=== PATIENT | female | born 1965 | race Caucasian/White ===

== ENCOUNTER → 2016-09-12 | Outpatient (CLI) | payer OTHER ==
[~2016-09-12] MED LIST: CONTRAVE1 TER PO; CYMBALTA30 MG PO; ESTRACE 2MG. TAB2 MG PO; LEVAQUIN500 MG PO; LEVOCETIRIZINE D5 MG PO; PYRIDIUM 200MG200 MG PO; SUMATRIPTAN SU100 M1 PO
[2016-09-16 19:46] LABS: VARICELLA-ZOSTER IGG AB 2.73 (<= 0.90); VARICELLA-ZOSTER IGM AB <=0.90 (<= 0.90)
[2016-09-26 09:56] LABS: MUMPS ANTIBODY IGG >5.00 index (())
== END ==
LOC: LAB 15:03
PROVIDERS: Family Medicine
DX: R76.0 Raised antibody titer (principal)

== ENCOUNTER → 2016-11-22 | Outpatient (CLI) | payer OTHER ==
--- NOTE | 2016-11-24 09:20 | RADIOLOGY REPORT PS360 ---
DIG MAMM-SCREEN [facility] W/CAD CAD Screening ORDERING PHYSICIAN : Dimitri Yee MD PATIENT AGE: 51 years GENDER: Female COMPARISON: Previous mammograms: June 2014 study from this facility Outside mammograms [facility] from January 2011 and April 2008 INDICATION: Patient taking estrogen. Previous benign excisional biopsy left breast. Mother with breast cancer age 54 TECHNIQUE: Standard CC and MLO images were obtained. R2 CAD reviewed. FINDINGS: Moderately dense breast bilaterally but with no dominant mass nor suspicious calcifications. RIGHT BREAST: Stable. No new findings. LEFT BREAST: There is additional density suggested at the deep lateral left breast towards upper outer quadrant. This could may be summation shadow since it partially dissipates on the x-ray cc view but it does appear to reflect a subtle change on standard MLO and cc view. Thus would recommend patient return for spot view in this area. These should include spot CC, spot MLO and 90 degrees spot views. Also ultrasound appropriate up to survey this area. I see the patient has had a biopsy at the superior breast which could conceivably contribute to of the slight asymmetry here. IMPRESSION: LEFT BREAST: Area of slight additional density at the left breast towards upper-outer quadrant Recommend spot views and ultrasound to further evaluate left breast . Right Breast stable. Follow-up in one year on right BI-RADS CATEGORY: 0_Incomplete: Need additional imaging. RECOMMENDED FOLLOWUP: ADD ADDITIONAL IMAGING Left breast spot views and ultrasound recommended (A letter has been sent to the patient regarding results of the study.)
== END ==
LOC: RAD 08:39
DX: Z12.31 Encounter for screening mammogram for malignant neoplasm of breast (principal)
CPT/HCPCS: G0202